=== PATIENT | female | born 1950 | race Caucasian/White ===

== ENCOUNTER 2018-12-13 17:40 | Emergency (ER) | payer MEDICARE ==
[2018-12-13 17:58] VITALS: BP 160/103; PULSE 85; O2SAT 98
--- NOTE | 2018-12-13 18:17 | ERPHSYRPT ---
- History of Present Illness Time Seen by Provider: 12/13/18 17:50 Source: patient Exam Limitations: no limitations Patient Subjective Stated Complaint: blood sugar 468 Triage Nursing Assessment: Pt reports her blood sugar as 468, started on long acting insulin about a month ago and takes a pill in the evening, she feels just "out of sorts", took pill already this evening, needs education on diabetic nutrition Physician History: 68 y/o diabetic white female with h/o htn, who newly began insulin, presents with weakness and nausea for a few days. pt bs at home was 468. pt took her morning dose of insulin and her metformin block captain. no vomiting or diarrhea. pt denies cp and denies soa. pt denies abd pain. Timing/Duration: day(s) (a few days) Severity: mild Associated Symptoms: nausea, weakness, No vomiting, No abdominal pain, No shortness of breath, No cough Allergies/Adverse Reactions: codeine [Codeine] Allergy (Mild, Verified 12/13/18 17:58) Home Medications: Metoprolol Succinate [Toprol Xl] 100 mg PO DAILY 07/11/12 [History] Gabapentin 1,200 mg PO HS 12/13/18 [History] Insulin Degludec [Tresiba Flextouch U-200] 30 unit SQ DAILY 12/13/18 [History] Metformin HCl 500 mg [Glucophage 500 MG] 500 mg PO DAILY 12/13/18 [History ] Hx Tetanus, Diphtheria Vaccination/Date Given: (UNKNOWN) Hx Influenza Vaccination/Date Given: No Hx Pneumococcal Vaccination/Date Given: No - Review of Systems Constitutional: Weakness Eyes: No Symptoms Ears, Nose, & Throat: No Symptoms Respiratory: No Symptoms Cardiac: No Symptoms Abdominal/Gastrointestinal: No Symptoms, Nausea Genitourinary Symptoms: No Symptoms Musculoskeletal: No Symptoms Skin: No Symptoms Neurological: No Symptoms Psychological: No Symptoms Endocrine: No Symptoms Hematologic/Lymphatic: No Symptoms Immunological/Allergic: No Symptoms All Other Systems: Reviewed and Negative - Past Medical History Pertinent Past Medical History: Yes Neurological History: No Pertinent History ENT History: No Pertinent History Cardiac History: Hypertension Respiratory History: No Pertinent History Endocrine Medical History: Diabetes Type II Musculoskeletal History: No Pertinent History GI Medical History: Colorectal Cancer History: No Pertinent History Psycho-Social History: No Pertinent History Female Reproductive Disorders: No Pertinent History Other Medical History: HODGKINS LYMPHOMA - Past Surgical History Past Surgical History: Yes Neuro Surgical History: No Pertinent History Cardiac: No Pertinent History Respiratory: No Pertinent History Gastrointestinal: Appendectomy, Bowel Surgery, Cholecystectomy Musculoskeletal: No Pertinent History Female Surgical History: Hysterectomy Other Surgical History: RIGHT SHOULDER - Social History Smoking Status: Never smoker Exposure to second hand smoke: No Drug Use: none Patient Lives Alone: No - Female History Hx Now: No - Nursing Vital Signs Nursing Vital Signs: Initial Vital Signs Temperature 97.5 F 12/13/18 17:45 Pulse Rate 85 12/13/18 17:45 Blood Pressure 160/103 12/13/18 17:45 O2 Sat by Pulse Oximetry 98 12/13/18 17:45 Pain Scale Pain Intensity 0 - Physical Exam General Appearance: no apparent distress, alert, anxiety Eye Exam: PERRL/EOMI Ears, Nose, Throat Exam: normal ENT inspection, moist mucous membranes Neck Exam: normal inspection, non-tender, supple, full range of motion Respiratory Exam: normal breath sounds, lungs clear, airway intact, No chest tenderness, No respiratory distress, No accessory muscle use, No rhonchi, No wheezing, No stridor Cardiovascular Exam: regular rate/rhythm, normal heart sounds, normal peripheral pulses Gastrointestinal/Abdomen Exam: soft, normal bowel sounds, No tenderness, No guarding, No rebound Pelvic Exam: not done Rectal Exam: not done Back Exam: normal inspection, normal range of motion, No CVA tenderness, No vertebral tenderness Extremity Exam: normal inspection, normal range of motion, pelvis stable Neurologic Exam: alert, oriented x 3, cooperative, melt room 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 pt was not angry and there was no confrontation at time of h and p with nurse or doctor. pt left into a car in her hospital gown. - Departure Time of Disposition: 18:20 Departure Disposition: AMA Clinical Impression: Hyperglycemia, Nausea, Weakness, Hypertension Condition: Stable Critical Care Time: No Referrals: GARIMA MERCADO MD [Primary Care Provider] -
== END 2018-12-13 18:10 | disposition left against medical advice (07) ==
LOC: ED 17:40
DX: E11.65 Type 2 diabetes mellitus with hyperglycemia (principal); Z79.4 Long term (current) use of insulin; R11.0 Nausea; R53.1 Weakness; I10 Essential (primary) hypertension; Z85.038 Personal history of other malignant neoplasm of large intestine; Z85.72 Personal history of non-Hodgkin lymphomas; Z79.899 Other long term (current) drug therapy
CPT/HCPCS: 99283

== ENCOUNTER 2021-06-17 12:04 | Observation (INO) | payer MEDICARE ==
--- NOTE | 2021-06-17 12:07 | ERPHSYRPT ---
- History of Present Illness Time Seen by Provider: 06/17/21 12:07 Source: patient Exam Limitations: clinical condition Physician History: This is a 71-year-old white female who has been having flulike symptoms for the last several days. She has symptoms of weakness, mild cough, arthralgias and myalgias as well as decreased appetite and loss of sense of taste and smell. She has no known exposure to individuals with COVID-19 infection. She was waiting out in the registration area just feeling very weak and then sat herself down onto the floor. She denies chest pain. She has very mild shortness of breath. She has no abdominal pain. She has had decreased appetite. She has had nausea but no vomiting. She has no diarrhea. Patient has not been vaccinated against COVID-19 infection. Timing/Duration: day(s) (Symptoms worsening over the last few days), worse Cough Quality/Degree: mild Possible Cause: no prior episodes Modifying Factors: Improves With: coughing (Mild) Associated Symptoms: cough, muscle aches, shortness of breath (Mild), No chest pain/soreness Allergies/Adverse Reactions: codeine [Codeine] Allergy (Mild, Verified 06/17/21 12:26) Hx Tetanus, Diphtheria Vaccination/Date Given: (UNKNOWN) Hx Influenza Vaccination/Date Given: No Hx Pneumococcal Vaccination/Date Given: No Travel Risk - International Travel Have you traveled outside of the country in past 3 weeks: No - Coronavirus Screening Are you exhibiting any of the following symptoms?: Yes Symptoms: Cough: New Onset, Shortness of Breath, Loss of Taste or Smell, Headaches/Body Aches/Fatigue Close contact with a COVID-19 positive Pt in past 14-21 Days: No - Vaccine Status Have you recieved a Covid-19 vaccination: No - Review of Systems Constitutional: No Symptoms Eyes: No Symptoms Ears, Nose, & Throat: No Symptoms Respiratory: Cough Cardiac: No Symptoms, No Chest Pain Abdominal/Gastrointestinal: Nausea, Appetite Changes Genitourinary Symptoms: No Symptoms Musculoskeletal: Arthralgias, Myalgias Skin: No Symptoms Neurological: No Symptoms Psychological: No Symptoms Endocrine: No Symptoms Hematologic/Lymphatic: No Symptoms Immunological/Allergic: No Symptoms All Other Systems: Reviewed and Negative - Past Medical History Pertinent Past Medical History: Yes Neurological History: No Pertinent History ENT History: No Pertinent History Cardiac History: Hypertension Respiratory History: No Pertinent History Endocrine Medical History: Diabetes Type II Musculoskeletal History: No Pertinent History GI Medical History: Colorectal Cancer History: No Pertinent History Psycho-Social History: No Pertinent History Female Reproductive Disorders: No Pertinent History Other Medical History: HODGKINS LYMPHOMA - Past Surgical History Past Surgical History: Yes Neuro Surgical History: No Pertinent History Cardiac: No Pertinent History Respiratory: No Pertinent History Gastrointestinal: Appendectomy, Bowel Surgery, Cholecystectomy Musculoskeletal: No Pertinent History Female Surgical History: Hysterectomy Other Surgical History: RIGHT SHOULDER - Social History Smoking Status: Never smoker Exposure to second hand smoke: No Drug Use: none Patient Lives Alone: No - Nursing Vital Signs Nursing Vital Signs: Initial Vital Signs Temperature 97.0 F 06/17/21 12:06 Pulse Rate 70 06/17/21 12:06 Respiratory Rate 22 06/17/21 12:06 Blood Pressure 124/84 06/17/21 12:06 O2 Sat by Pulse Oximetry 96 06/17/21 12:06 Pain Scale Pain Intensity 9 - Physical Exam General Appearance: mild distress, alert, anxiety Eye Exam: PERRL/EOMI, eyes nml inspection Ears, Nose, Throat Exam: normal ENT inspection, moist mucous membranes Neck Exam: normal inspection, non-tender, supple, full range of motion Respiratory Exam: normal breath sounds, lungs clear, airway intact, No chest tenderness, No respiratory distress Cardiovascular Exam: regular rate/rhythm, normal heart sounds, normal peripheral pulses Gastrointestinal/Abdomen Exam: soft, normal bowel sounds, No tenderness Pelvic Exam: not done Rectal Exam: not done Back Exam: normal inspection, normal range of motion, No CVA tenderness, No vertebral tenderness Extremity Exam: normal inspection, normal range of motion, pelvis stable Neurologic Exam: alert, oriented x 3, cooperative, high school industrial arts teacher II-XII nml as tested, normal mood/affect, nml cerebellar function, nml station & gait, sensation nml Skin Exam: normal color, warm, dry Lymphatic Exam: No adenopathy SpO2 Interpretation: normal O2 Delivery: Room Air - Course Nursing assessment & vital signs reviewed: Yes EKG Interpreted by Me: RATE (72), Sinus Rhythm, NORMAL AXIS, LAFB, NORMAL INTERVALS, Non-specific ST Changes, Other (No acute ischemic changes on today's EKG. There is no comparison EKG) Ordered Tests: Active Orders 24 hr Category Date Time Status EKG-ER Only STAT Care 06/17/21 12:12 Active IV Insertion STAT Care 06/17/21 12:12 Active Isolation, Initiate & Maintain STAT Care 06/17/21 12:13 Active CHEST 1 VIEW (PORTABLE) Stat Exams 06/17/21 12:14 Completed BLOOD CULTURE Stat Lab 06/17/21 12:50 Received CBC W DIFF Stat Lab 06/17/21 12:45 Completed CMP Stat Lab 06/17/21 12:45 Received Ferritin Stat Lab 06/17/21 12:45 Completed INFLUENZA A+B ELHAM Stat Lab 06/17/21 12:45 Received LDH-LACTATE DEHYDROGENASE Stat Lab 06/17/21 12:45 Received Lactic Acid Stat Lab 06/17/21 12:12 Completed Stanley Screen Stat Lab 06/17/21 12:45 Completed TROPONIN Q3H Lab 06/17/21 12:45 Completed TROPONIN Q3H Lab 06/17/21 15:15 Ordered TROPONIN Q3H Lab 06/17/21 18:15 Ordered TROPONIN Q3H Lab 06/17/21 21:15 Ordered TROPONIN Q3H Lab 06/18/21 00:15 Ordered Transfer Order Routine Transfer 06/17/21 Ordered Medication Summary Generic Name Dose Route Start Last Admin Trade Name Freq PRN Reason Stop Dose Admin Sodium Chloride 1,000 mls @ 100 mls/hr 06/17/21 12:15 06/17/21 13:01 Sodium Chloride 0.9% 1000 Ml IV 07/17/21 12:14 100 mls/hr .Q10H JAM Administration Discontinued Medications Generic Name Dose Route Start Last Admin Trade Name Freq PRN Reason Stop Dose Admin Dexamethasone Sodium Phosphate 8 mg 06/17/21 14:23 Decadron 4 Mg Inj IV 06/17/21 14:24 STAT ONE Enoxaparin Sodium 40 mg 06/17/21 14:23 Enoxaparin Sodium SQ 06/17/21 14:24 STAT ONE Lab/Rad Data: Laboratory Result Diagrams 06/17/21 12:45 06/17/21 12:45 Laboratory Results 06/17/21 06/17/21 06/17/21 Range/Units 13:08 12:45 12:45 WBC (4.0-10.5) K/mm3 RBC (4.1-5.4) M/mm3 Hgb (12.0-16.0) gm/dl Hct (35-47) % MCV (78-100) fl MCH (26-32) pg MCHC (32-36) g/dl RDW (11.5-14.0) % Plt Count (150-450) K/mm3 MPV (7.5-11.0) fl Gran % (36.0-66.0) % Eos # (Auto) (0-0.5) Absolute Lymphs (auto) (1.0-4.6) Absolute Monos (auto) (0.0-1.3) Lymphocytes % (24.0-44.0) % Monocytes % (0.0-12.0) % Eosinophils % (0.00-5.0) % Basophils % (0.0-0.4) % Absolute Granulocytes (1.4-6.9) Basophils # (0-0.4) Sodium (137-145) mmol/L Potassium (3.5-5.1) mmol/L Chloride (98-107) mmol/L Carbon Dioxide (22-30) mmol/L Anion Gap (5-15) MEQ/L BUN (7-17) mg/dL Creatinine (0.52-1.04) mg/dL Estimated GFR ML/MIN Glucose (74-106) mg/dL Lactic Acid (0.4-2.0) Calcium (8.4-10.2) mg/dL Ferritin 438 H (11.1-264) ng/mL Total Bilirubin (0.2-1.3) mg/dL AST (14-36) U/L ALT (0-35) U/L Alkaline Phosphatase (38-126) U/L Lactate Dehydrogenase (120-246) U/L Troponin I (0.000-0.034) ng/mL Serum Total Protein (6.3-8.2) g/dL Albumin (3.5-5.0) g/dL Monoscreen NEGATIVE (Negative) Influenza Type A Ag (NEGATIVE) Influenza Type B Ag (NEGATIVE) SARS-CoV-2 (PCR) POSITIVE A (NEGATIVE) Group A Strep Antibody (NEGATIVE) 06/17/21 06/17/21 06/17/21 Range/Units 12:45 12:45 12:45 WBC (4.0-10.5) K/mm3 RBC (4.1-5.4) M/mm3 Hgb (12.0-16.0) gm/dl Hct (35-47) % MCV (78-100) fl MCH (26-32) pg MCHC (32-36) g/dl RDW (11.5-14.0) % Plt Count (150-450) K/mm3 MPV (7.5-11.0) fl Gran % (36.0-66.0) % Eos # (Auto) (0-0.5) Absolute Lymphs (auto) (1.0-4.6) Absolute Monos (auto) (0.0-1.3) Lymphocytes % (24.0-44.0) % Monocytes % (0.0-12.0) % Eosinophils % (0.00-5.0) % Basophils % (0.0-0.4) % Absolute Granulocytes (1.4-6.9) Basophils # (0-0.4) Sodium (137-145) mmol/L Potassium (3.5-5.1) mmol/L Chloride (98-107) mmol/L Carbon Dioxide (22-30) mmol/L Anion Gap (5-15) MEQ/L BUN (7-17) mg/dL Creatinine (0.52-1.04) mg/dL Estimated GFR ML/MIN Glucose (74-106) mg/dL Lactic Acid (0.4-2.0) Calcium (8.4-10.2) mg/dL Ferritin (11.1-264) ng/mL Total Bilirubin (0.2-1.3) mg/dL AST (14-36) U/L ALT (0-35) U/L Alkaline Phosphatase (38-126) U/L Lactate Dehydrogenase (120-246) U/L Troponin I < 0.012 (0.000-0.034) ng/mL Serum Total Protein (6.3-8.2) g/dL Albumin (3.5-5.0) g/dL Monoscreen (Negative) Influenza Type A Ag NEGATIVE (NEGATIVE) Influenza Type B Ag NEGATIVE (NEGATIVE) SARS-CoV-2 (PCR) (NEGATIVE) Group A Strep Antibody NOT DETECTED (NEGATIVE) 06/17/21 06/17/21 06/17/21 Range/Units 12:45 12:45 12:12 WBC 5.1 (4.0-10.5) K/mm3 RBC 5.28 (4.1-5.4) M/mm3 Hgb 15.3 (12.0-16.0) gm/dl Hct 45.2 (35-47) % MCV 85.6 (78-100) fl MCH 29.0 (26-32) pg MCHC 33.8 (32-36) g/dl RDW 13.8 (11.5-14.0) % Plt Count 127 L (150-450) K/mm3 MPV 11.2 H (7.5-11.0) fl Gran % 69.0 H (36.0-66.0) % Eos # (Auto) 0.03 (0-0.5) Absolute Lymphs (auto) 1.12 (1.0-4.6) Absolute Monos (auto) 0.43 (0.0-1.3) Lymphocytes % 21.8 L (24.0-44.0) % Monocytes % 8.4 (0.0-12.0) % Eosinophils % 0.6 (0.00-5.0) % Basophils % 0.2 (0.0-0.4) % Absolute Granulocytes 3.54 (1.4-6.9) Basophils # 0.01 (0-0.4) Sodium 129 L (137-145) mmol/L Potassium 4.5 (3.5-5.1) mmol/L Chloride 93 L (98-107) mmol/L Carbon Dioxide 25 (22-30) mmol/L Anion Gap 15.9 H (5-15) MEQ/L BUN 13 (7-17) mg/dL Creatinine 0.71 (0.52-1.04) mg/dL Estimated GFR > 60.0 ML/MIN Glucose 321 H (74-106) mg/dL Lactic Acid 1.2 (0.4-2.0) Calcium 9.2 (8.4-10.2) mg/dL Ferritin (11.1-264) ng/mL Total Bilirubin 1.40 H (0.2-1.3) mg/dL AST 26 (14-36) U/L ALT 24 (0-35) U/L Alkaline Phosphatase 98 (38-126) U/L Lactate Dehydrogenase 156 (120-246) U/L Troponin I (0.000-0.034) ng/mL Serum Total Protein 6.9 (6.3-8.2) g/dL Albumin 4.1 (3.5-5.0) g/dL Monoscreen (Negative) Influenza Type A Ag (NEGATIVE) Influenza Type B Ag (NEGATIVE) SARS-CoV-2 (PCR) (NEGATIVE) Group A Strep Antibody (NEGATIVE) - Progress Progress: improved, re-examined Air Movement: good Progress Note: 06/17/21 14:19 Chest x-ray shows no acute cardiopulmonary process. 06/17/21 14:20 Medical decision making: This patient is very weak. She has mild shortness of breath. She has no chest pain. She is only a mild cough. However her weakness is significant as is her myalgias and arthralgias. She has had a decreased appetite. Her COVID-19 test has returned positive. Patient needs to be monitored in our Covid unit. I spoke with Dr. Orozco. I reviewed the patient history, clinical findings, laboratory results, EKG findings and x-ray reports with him. He agrees with placement into observation. Blood Culture(s) Obtained: Yes Antibiotics given: No Discussed with Dr.: Other (Ernesto) Counseled pt/family regarding: lab results, diagnosis, rad results - Departure Departure Disposition: Observation Clinical Impression: COVID-19 virus infection, Weakness Condition: Stable Critical Care Time: Yes Critical Care Time(excluding separately billable procedures): Critical 30-74 mins Referrals: GARIMA MERCADO MD [Primary Care Provider] -
[2021-06-17] MEDS ORDERED: Sodium Chloride 0.9% 1000 ML 1,000 ML IV SCH ×2 (12:15→16:17)
--- NOTE | 2021-06-17 12:36 | XRAY ---
Indication: Cough. Comparison: None Portable chest clear. Heart not enlarged. Bony thorax intact with mild osteopenia and degenerative changes. Impression: Nonacute chest with chronic bony findings.
[2021-06-17 13:10] LABS: Absolute Neutrophil Ct (ANC) 3.54 (1.4-6.9); BASOPHIL % 0.2 % (0.0-0.4); Basophil (Absolute #) 0.01 (0-0.4); Eosinophil % 0.6 % (0.00-5.0); Eosinophil (Absolute #) 0.03 (0-0.5); Hematocrit 45.2 % (35-47); Hemoglobin 15.3 gm/dl (12.0-16.0); Lymphocyte (Absolute #) 1.12 (1.0-4.6); Lymphocytes % 21.8 % (24.0-44.0); Mean Cell Volume 85.6 fl (78-100); Mean Corpuscular Hgb Concent. 33.8 g/dl (32-36); Mean Platelet Volume 11.2 fl (7.5-11.0); Monocyte (Absolute #) 0.43 (0.0-1.3); Monocytes % 8.4 % (0.0-12.0); Platelet Count 127 K/mm3 (150-450); Red Blood Count 5.28 M/mm3 (4.1-5.4); Red Cell Distribution Width 13.8 % (11.5-14.0); White Blood Count 5.1 K/mm3 (4.0-10.5)
[2021-06-17 14:18] LABS: ALBUMIN 4.1 g/dL (3.5-5.0); ALKALINE PHOSPHATASE 98 U/L (38-126); ANION GAP 15.9 MEQ/L (5-15); BLOOD UREA NITROGEN 13 mg/dL (7-17); CHLORIDE 93 mmol/L (98-107); Calcium 9.2 mg/dL (8.4-10.2); Carbon Dioxide 25 mmol/L (22-30); Creatinine 1 0.71 mg/dL (0.52-1.04); EST GLOMERULAR FILTRATION RATE > 60.0 ML/MIN; Glucose 321 mg/dL (74-106); LDH-LACTATE DEHYDROGENASE 156 U/L (120-246); Potassium 4.5 mmol/L (3.5-5.1); SGOT/AST 26 U/L (14-36); SGPT/ALT 24 U/L (0-35); SODIUM 129 mmol/L (137-145); Total Protein 6.9 g/dL (6.3-8.2)
[2021-06-17 14:20] LABS: INFLUENZA A NEGATIVE (NEGATIVE); INFLUENZA B NEGATIVE (NEGATIVE)
[2021-06-17] MEDS ORDERED: ENOXAPARIN SODIUM SQ ONE (14:23)
[2021-06-17] MEDS ORDERED: Decadron 4 MG INJ IV ONE (14:23)
[2021-06-17] MEDS ORDERED: TYLENOL 325 MG PO PRN (16:17)
[2021-06-17] MEDS ORDERED: Zofran 4 MG/2 ML VIAL IV PRN (16:17)
[2021-06-17] MEDS ORDERED: REMDESIVIR 200 MG in Sodium Chloride 0.9% 250 ML 250 ML IV ONE (16:17)
[2021-06-17 16:23] VITALS: BP 137/80
[2021-06-17] MEDS ORDERED: TYLENOL EXTRA STRENGTH 500 MG PO PRN (17:16)
[2021-06-17] MEDS ORDERED: Ativan 1 MG PO PRN (17:16)
[2021-06-17] MEDS: HUMULIN R SQ PRN ×2 (17:37→20:22)
[2021-06-17] MEDS ORDERED: Decadron 4 MG INJ IV SCH (17:45)
[2021-06-17] MEDS ORDERED: NEURONTIN 300 MG ONE (20:20)
[2021-06-17] MEDS ORDERED: Lopressor 50 MG ONE (20:20)
[2021-06-17 20:28] VITALS: PULSE 80; O2SAT 92
[2021-06-17] MEDS ORDERED: NEURONTIN 300 MG PO SCH (22:00)
[2021-06-17] MEDS ORDERED: Lopressor 50 MG PO SCH (22:00)
[2021-06-18] MEDS ORDERED: ENOXAPARIN SODIUM SQ SCH (10:00)
[2021-06-18] MEDS ORDERED: REMDESIVIR 100 MG in Sodium Chloride 0.9% 100 ML BAG 100 ML IV SCH (14:28)
== END 2021-06-17 20:50 | disposition left against medical advice (07) ==
LOC: ED 12:04 → MED SURG 16:00
PROVIDERS: ADMIT Family Medicine; ATTEND Family Medicine
DX: U07.1 COVID-19 (principal); R53.1 Weakness; R06.02 Shortness of breath; R51.9 Headache, unspecified; E11.9 Type 2 diabetes mellitus without complications; Z20.822 Contact with and (suspected) exposure to COVID-19; R11.0 Nausea; I10 Essential (primary) hypertension; Z79.899 Other long term (current) drug therapy
CPT/HCPCS: 36000; 36415; 71045; 80053; 82728; 82947; 83605; 83615; 84484; 85025; 86308; 87040; 87400; 87651; 93005; 93268; 94762; 96360; 96361; 99284; G0378; U0003; J1100; J1815; A9270-GY

== ENCOUNTER 2021-10-18 17:31 | Emergency (ER) | payer MEDICARE ==
--- NOTE | 2021-10-18 18:14 | ERPHSYRPT ---
- History of Present Illness Time Seen by Provider: 10/18/21 17:38 Source: patient Exam Limitations: no limitations Patient Subjective Stated Complaint: "My head hurt real bad." Triage Nursing Assessment: The patient reported an acute onset of headache that lasted roughly 15 minutes. She reported this happened after [place] the [place] and she had not taken her nightly BP meds yet. She denied any visual/auditory disturbances, dizziness, or weakness. She denied difficulty speaking, swallowing, or walking. Pupils 4mm bilateral with brisk reaction. Oral mucosa pink/dry. Neck supple without lympadenopathy. Symmetrical chest e xpansion. heart tones S1/S2. Lungs vesicular. Peripheral pulses +2 bilateral Physician History: 71-year-old female with a history of hypertension, diabetes mellitus presented in the ER via EMS with chief complaint of sudden onset headache and elevated blood pressure. Patient reports [place] and came back home started to feel some headache almost an hour prior to arrival, constant, moderate to severe intensity, sharp nature, all over with some blinking of eyes without any new visual disturbance but what she has at her baseline. She checked her blood pressure and it was in 200s, took her nighttime medication and her symptoms started to improve prior to arrival. Currently she has a minimal to no headache at this point. Denies any numbness tingling or focal weakness. Denies any chest pain palpitations or shortness of breath. Patient does not want any lab work/EKG/imaging which she is refusing and wants to leave. Timing/Duration: today, constant, gradual onset, improved Quality: sharpness Head Pain Location: global Severity of Pain-Max: severe Severity of Pain-Current: none Recent Head Trauma: no recent headache/trauma Associated Symptoms: denies symptoms Previous symptoms: no prior history Allergies/Adverse Reactions: codeine [Codeine] Allergy (Mild, Verified 10/18/21 17:34) Home Medications: Gabapentin 600 mg PO HS 06/17/21 [History] Insulin Degludec [Tresiba Flextouch U-200] 60 unit SQ HS 06/17/21 [History] Metoprolol Tartrate [Lopressor] 100 mg PO HS 06/17/21 [History] lisinopriL [Lisinopril] 40 mg PO DAILY 06/17/21 [History] Hx Tetanus, Diphtheria Vaccination/Date Given: No (UNKNOWN) Hx Influenza Vaccination/Date Given: No Hx Pneumococcal Vaccination/Date Given: No Travel Risk - International Travel Have you traveled outside of the country in past 3 weeks: No - Coronavirus Screening Are you exhibiting any of the following symptoms?: No Close contact with a COVID-19 positive Pt in past 14-21 Days: No - Vaccine Status Have you recieved a Covid-19 vaccination: No - Review of Systems Constitutional: No Symptoms Eyes: No Symptoms Ears, Nose, & Throat: No Symptoms Respiratory: No Symptoms Cardiac: No Symptoms Abdominal/Gastrointestinal: No Symptoms Genitourinary Symptoms: No Symptoms Musculoskeletal: Arthralgias Skin: No Symptoms Neurological: Headache Psychological: Anxiety Endocrine: No Symptoms Hematologic/Lymphatic: No Symptoms Immunological/Allergic: No Symptoms - Past Medical History Pertinent Past Medical History: Yes Neurological History: No Pertinent History ENT History: No Pertinent History Cardiac History: Hypertension Respiratory History: No Pertinent History Endocrine Medical History: Diabetes Type II Musculoskeletal History: No Pertinent History GI Medical History: Colorectal Cancer History: No Pertinent History Psycho-Social History: No Pertinent History Female Reproductive Disorders: No Pertinent History Other Medical History: HODGKINS LYMPHOMA - Past Surgical History Past Surgical History: Yes Neuro Surgical History: No Pertinent History Cardiac: No Pertinent History Respiratory: No Pertinent History Gastrointestinal: Appendectomy, Bowel Surgery, Cholecystectomy Musculoskeletal: No Pertinent History Female Surgical History: Hysterectomy Other Surgical History: RIGHT SHOULDER - Social History Smoking Status: Never smoker Exposure to second hand smoke: No Drug Use: none Patient Lives Alone: No - Female History Hx Now: No - Nursing Vital Signs Nursing Vital Signs: Initial Vital Signs Pulse Rate 112 H 10/18/21 17:32 Respiratory Rate 18 10/18/21 17:32 Blood Pressure 165/108 10/18/21 17:32 O2 Sat by Pulse Oximetry 95 10/18/21 17:32 Pain Scale Pain Intensity 0 - Physical Exam General Appearance: no apparent distress, alert Eye Exam: PERRL/EOMI, eyes nml inspection Ears, Nose, Throat Exam: normal ENT inspection, TMs normal, pharynx normal, moist mucous membranes Neck Exam: normal inspection, non-tender, supple, full range of motion Respiratory Exam: normal breath sounds, lungs clear Cardiovascular Exam: normal heart sounds, tachycardia Gastrointestinal/Abdominal Exam: soft, normal bowel sounds Back Exam: normal inspection Extremity Exam: normal inspection, normal range of motion Mental Status Exam: alert, oriented x 3, cooperative teacher vocational training Exam: normal hearing, normal speech, PERRL, No abnormal eye position Coordination/Gait Exam: normal finger to nose, negative Romberg's sign Motor/Sensory Exam: no motor deficit, no sensory deficit, no pronator drift, negative Babinski's sign DTR Exam: bicep (R): 2+, bicep (L): 2+, knee (R): 2+, knee (L): 2+ Skin Exam: normal color SpO2 Interpretation: normal SpO2: 95 O2 Delivery: Room Air - Course EKG Interpreted by Me: RATE (107), Sinus Tach, Left Moon Deviation, LAFB, NORMAL INTERVALS, Other (LVH, PVC) - Progress Progress: unchanged Air Movement: good Progress Note: 10/18/21 18:12 She is offered work-up for headache and evaluation of cause of uncontrolled hypertension but she refused to have anything done and wants to leave. Discussed with patient in detail about risk of leaving without full work-up which include but not limited to delaying the diagnosis, worsening of condition with permanent disability including with stroke/KS and she wants to leave. Patient states "I am fine and I need to leave right now". She is not confused or altered at all. She signed AMA papers, is advised to follow-up outpatient with her primary care. Discussed signs symptoms of worsening needing return to ER which she seems understanding 10/18/21 18:14 Blood Culture(s) Obtained: No Antibiotics given: No Counseled pt/family regarding: diagnosis, need for follow-up - Departure Departure Disposition: Home Clinical Impression: Uncontrolled hypertension, Headache Condition: Stable Critical Care Time: No Referrals: GARIMA MERCADO MD [Primary Care Provider] - Follow Up with PCP/3 days Instructions: Headache, Adult, Malignant Hypertension (DC) Additional Instructions: Take Tylenol as needed for headache. Monitor your blood pressure regularly, sandra bronson log and follow-up with primary care. Return to ER if blood pressure is elevated, having headache, visual disturbance, chest pain palpitations/shortness of breath or numbness tingling weakness etc.
[2021-10-18 18:22] VITALS: BP 156/100; PULSE 104; O2SAT 96
== END 2021-10-18 18:22 | disposition left against medical advice (07) ==
LOC: ED 17:31
DX: R51.9 Headache, unspecified (principal); I10 Essential (primary) hypertension; E11.9 Type 2 diabetes mellitus without complications; Z79.4 Long term (current) use of insulin
CPT/HCPCS: 99283

== ENCOUNTER 2021-10-19 04:19 | Emergency (ER) | payer MEDICARE ==
[2021-10-19] MEDS ORDERED: Sodium Chloride 0.9% 1000 ML 1,000 ML IV SCH (04:30)
--- NOTE | 2021-10-19 04:38 | ERPHSYRPT ---
- History of Present Illness Source: patient, EMS Exam Limitations: clinical condition Timing/Duration: today Severity: severe Character of Deficits: new weakness, unable to speak Deficits: cannot stand, cannot walk, unable to sit Baseline/Normal Cognition: alert oriented x 3 Current Cognition: poor alertness Baseline Gait: walks w/o assistance Associated Symptoms: confusion Hx Tetanus, Diphtheria Vaccination/Date Given: No (UNKNOWN) Hx Influenza Vaccination/Date Given: No Hx Pneumococcal Vaccination/Date Given: No <ALPESH SANTIZO - Last Filed: 10/19/21 06:54> <ANTONIO GARCIA - Last Filed: 10/19/21 08:10> - History of Present Illness Time Seen by Provider: 10/19/21 04:33 Physician History: pt is 71 yr old female reported as alert seen in ER earlier today with elevated BP but signed out AMA, then reported by family and EMS to have had an altered mental status then became less responsive and was brought into ER here. Ho Hx of trauma, but a question of potential seizure was mentioned in radio call to scene although not confirmed. No focal deficits on exam but not following any commands although moving all extremities with purposeful attention to stimuli. no facial droop. (ALPESH SANTIZO) Allergies/Adverse Reactions: codeine [Codeine] Allergy (Mild, Verified 10/18/21 17:34) Home Medications: Gabapentin 600 mg PO HS 06/17/21 [History] Insulin Degludec [Tresiba Flextouch U-200] 60 unit SQ HS 06/17/21 [History] Metoprolol Tartrate [Lopressor] 100 mg PO HS 06/17/21 [History] lisinopriL [Lisinopril] 40 mg PO DAILY 06/17/21 [History] Travel Risk - Vaccine Status Have you recieved a Covid-19 vaccination: No <ALPESH SANTIZO - Last Filed: 10/19/21 06:54> - Review of Systems Constitutional: Weakness, No Fever, No Chills Eyes: No Symptoms Ears, Nose, & Throat: No Symptoms Respiratory: No Cough, No Dyspnea Cardiac: No Chest Pain, No Edema, No Syncope Abdominal/Gastrointestinal: No Abdominal Pain, No Nausea, No Vomiting, No Diarrhea Genitourinary Symptoms: No Dysuria Musculoskeletal: No Back Pain, No Neck Pain Skin: No Symptoms, No Rash Neurological: Other (altered mental status), No Dizziness, No Focal Weakness, No Sensory Changes Psychological: No Symptoms, Hallucinations (reported by family earlier) Endocrine: No Symptoms Hematologic/Lymphatic: No Symptoms Immunological/Allergic: No Symptoms All Other Systems: Reviewed and Negative <ALPESH SANTIZO - Last Filed: 10/19/21 06:54> - Past Medical History Pertinent Past Medical History: Yes Neurological History: No Pertinent History ENT History: No Pertinent History Cardiac History: Hypertension Respiratory History: No Pertinent History Endocrine Medical History: Diabetes Type II Musculoskeletal History: No Pertinent History GI Medical History: Colorectal Cancer History: No Pertinent History Psycho-Social History: No Pertinent History Female Reproductive Disorders: No Pertinent History Other Medical History: HODGKINS LYMPHOMA - Past Surgical History Past Surgical History: Yes Neuro Surgical History: No Pertinent History Cardiac: No Pertinent History Respiratory: No Pertinent History Gastrointestinal: Appendectomy, Bowel Surgery, Cholecystectomy Musculoskeletal: No Pertinent History Female Surgical History: Hysterectomy Other Surgical History: RIGHT SHOULDER - Social History Smoking Status: Never smoker Exposure to second hand smoke: No Drug Use: none Patient Lives Alone: No <ALPESH SANTIZO - Last Filed: 10/19/21 06:54> - [place] Coma Scale Best Eye Response ([place]): (2) open to pain Best Verbal Response ([place]): (2) incomprehsible sounds Best Motor Response ([place]): (5) localizes to pain [place] Total: 9 - Physical Exam General Appearance: moderate distress Eye Exam: bilateral eye: PERRL, EOMI Ears, Nose, Throat Exam: normal ENT inspection Neck Exam: normal inspection, non-tender, supple, full range of motion, No meningismus, No carotid bruit Respiratory: normal breath sounds, lungs clear, airway intact Cardiovascular: normal heart sounds Gastrointestinal: soft, No tenderness, No rebound Pelvic Exam: deferred Rectal Exam: deferred Back Exam: normal inspection Extremity Exam: normal inspection Peripheral Pulses: carotid (R): 2+, carotid (L): 2+, femoral (R): 2+, femoral (L): 2+, dorsalis-pedis (R): 2+, dorsalis-pedis (L): 2+ Mental Status: uncooperative, disoriented to person, disoriented to place, 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 Exam: PERRL, abnormal speech, No facial droop Motor/Sensory: no motor deficit, no sensory deficit DTR: bicep (R): 2+, bicep (L): 2+, tricep (R): 2+, tricep (L): 2+, knee (R): 2+, knee (L): 2+, ankle (R): 2+, ankle (L): 2+ Skin Exam: normal color, warm, dry SpO2 Interpretation: borderline oxygenation SpO2: 91 O2 Delivery: Room Air <ALPESH SANTIZO - Last Filed: 10/19/21 06:54> - Nursing Vital Signs Nursing Vital Signs: Initial Vital Signs Pulse Rate 87 10/19/21 04:20 Respiratory Rate 16 10/19/21 04:20 Blood Pressure 139/91 10/19/21 04:20 O2 Sat by Pulse Oximetry 96 10/19/21 04:20 Pain Scale Pain Intensity 0 - Course Nursing assessment & vital signs reviewed: Yes EKG Interpreted by Me: Sinus Rhythm, Left [place] Deviation, Non-specific ST Changes, Other (interventricular conduction delay) - Radiology Exams Chest X-ray Interpretation: Reviewed by me, Other (possible perihilar interstitial infiltrates) - CT Exams Head CT Interpretation: No/Intracranial Hemorrhag <ALPESH SANTIZO - Last Filed: 10/19/21 06:54> Ordered Tests: Active Orders 24 hr Category Date Time Status Ict Development Manager STAT Care 10/19/21 04:23 Active Clean Catch Urine Specimen STAT Care 10/19/21 04:21 Active EKG-ER Only STAT Care 10/19/21 04:21 Active IV Insertion STAT Care 10/19/21 04:21 Active NPO (ED) STAT Care 10/19/21 04:21 Active Oxygen-ED Only Nasal Cannula 2 lpm Care 10/19/21 04:52 Active Pulse Oximetry (ED) STAT Care 10/19/21 04:21 Active Tele-Health Consult ROUTINE Cons 10/19/21 04:55 Active CHEST 1 VIEW (PORTABLE) Stat Exams 10/19/21 04:22 Taken HEAD WITHOUT CONTRAST [CT] Stat Exams 10/19/21 04:22 Taken CBC W DIFF Stat Lab 10/19/21 04:50 Completed CMP Stat Lab 10/19/21 04:50 Completed ETHYL ALCOHOL Stat Lab 10/19/21 04:50 Completed Lactic Acid Stat Lab 10/19/21 04:48 Completed Lactic Acid Stat Lab 10/19/21 06:54 Completed NT PRO BNP Routine Lab 10/19/21 04:50 Completed T4 (Thyroxine) Stat Lab 10/19/21 04:50 Completed TROPONIN Q3H Lab 10/19/21 04:50 Completed TROPONIN Q3H Lab 10/19/21 07:27 Received TROPONIN Q3H Lab 10/19/21 10:30 Ordered TROPONIN Q3H Lab 10/19/21 13:30 Ordered TROPONIN Q3H Lab 10/19/21 16:30 Ordered TSH [TSH, 3RD Generation] Stat Lab 10/19/21 04:50 Completed UA W/RFX UR CULTURE Stat Lab 10/19/21 07:50 Ordered Urine Triage Profile Stat Lab 10/19/21 07:50 Ordered Medication Summary Generic Name Dose Route Start Last Admin Trade Name Freq PRN Reason Stop Dose Admin Sodium Chloride 1,000 mls @ 100 mls/hr 10/19/21 04:30 10/19/21 05:03 Sodium Chloride 0.9% 1000 Ml IV 11/18/21 04:29 100 mls/hr .Q10H JAM Administration Discontinued Medications Generic Name Dose Route Start Last Admin Trade Name Freq PRN Reason Stop Dose Admin Levetiracetam 1,000 mg/ 110 mls @ 220 mls/hr 10/19/21 07:36 10/19/21 08:03 Dextrose IV 10/19/21 08:05 220 mls/hr STAT ONE Administration Lab/Rad Data: Laboratory Result Diagrams 10/19/21 04:50 10/19/21 04:50 Laboratory Results 10/19/21 10/19/21 10/19/21 Range/Units 06:54 04:50 04:50 WBC (4.0-10.5) K/mm3 RBC (4.1-5.4) M/mm3 Hgb (12.0-16.0) gm/dl Hct (35-47) % MCV (78-100) fl MCH (26-32) pg MCHC (32-36) g/dl RDW (11.5-14.0) % Plt Count (150-450) K/mm3 MPV (7.5-11.0) fl Gran % (36.0-66.0) % Eos # (Auto) (0-0.5) Absolute Lymphs (auto) (1.0-4.6) Absolute Monos (auto) (0.0-1.3) Lymphocytes % (24.0-44.0) % Monocytes % (0.0-12.0) % Eosinophils % (0.00-5.0) % Basophils % (0.0-0.4) % Absolute Granulocytes (1.4-6.9) Basophils # (0-0.4) Sodium 134 L (137-145) mmol/L Potassium 4.7 (3.5-5.1) mmol/L Chloride 101 (98-107) mmol/L Carbon Dioxide 20 L (22-30) mmol/L Anion Gap 17.9 H (5-15) MEQ/L BUN 25 H (7-17) mg/dL Creatinine 0.91 (0.52-1.04) mg/dL Estimated GFR > 60.0 ML/MIN Glucose 255 H (74-106) mg/dL Lactic Acid 1.4 (0.4-2.0) Calcium 10.0 (8.4-10.2) mg/dL Total Bilirubin 1.60 H (0.2-1.3) mg/dL AST 40 H (14-36) U/L ALT 26 (0-35) U/L Alkaline Phosphatase 96 (38-126) U/L Troponin I (0.000-0.034) ng/mL NT-Pro-B Natriuret Pep (0-900) pg/mL Serum Total Protein 7.4 (6.3-8.2) g/dL Albumin 4.5 (3.5-5.0) g/dL Thyroxine (T4) 9.01 (5.53-10.96) ug/dL TSH 3rd Generation 3.400 (0.47-4.68) mIU/L Ethyl Alcohol < 10 (0-10) mg/dL 10/19/21 10/19/21 10/19/21 Range/Units 04:50 04:50 04:48 WBC 9.7 (4.0-10.5) K/mm3 RBC 5.42 H (4.1-5.4) M/mm3 Hgb 15.7 (12.0-16.0) gm/dl Hct 46.7 (35-47) % MCV 86.2 (78-100) fl MCH 29.0 (26-32) pg MCHC 33.6 (32-36) g/dl RDW 13.5 (11.5-14.0) % Plt Count 234 (150-450) K/mm3 MPV 11.0 (7.5-11.0) fl Gran % 62.6 (36.0-66.0) % Eos # (Auto) 0.19 (0-0.5) Absolute Lymphs (auto) 2.60 (1.0-4.6) Absolute Monos (auto) 0.78 (0.0-1.3) Lymphocytes % 26.9 (24.0-44.0) % Monocytes % 8.1 (0.0-12.0) % Eosinophils % 2.0 (0.00-5.0) % Basophils % 0.4 (0.0-0.4) % Absolute Granulocytes 6.07 (1.4-6.9) Basophils # 0.04 (0-0.4) Sodium (137-145) mmol/L Potassium (3.5-5.1) mmol/L Chloride (98-107) mmol/L Carbon Dioxide (22-30) mmol/L Anion Gap (5-15) MEQ/L BUN (7-17) mg/dL Creatinine (0.52-1.04) mg/dL Estimated GFR ML/MIN Glucose (74-106) mg/dL Lactic Acid 6.4 H (0.4-2.0) Calcium (8.4-10.2) mg/dL Total Bilirubin (0.2-1.3) mg/dL AST (14-36) U/L ALT (0-35) U/L Alkaline Phosphatase (38-126) U/L Troponin I < 0.012 (0.000-0.034) ng/mL NT-Pro-B Natriuret Pep 107 (0-900) pg/mL Serum Total Protein (6.3-8.2) g/dL Albumin (3.5-5.0) g/dL Thyroxine (T4) (5.53-10.96) ug/dL TSH 3rd Generation (0.47-4.68) mIU/L Ethyl Alcohol (0-10) mg/dL - Progress Progress: improved, re-examined Counseled pt/family regarding: lab results, diagnosis, need for follow-up, rad results <ALPESH SANTIZO - Last Filed: 10/19/21 06:54> - Progress Discussed with Dr.: Other <ANTONIO GARCIA - Last Filed: 10/19/21 08:10> - Progress Progress Note: 10/19/21 05:00 GCS improved to 15 under obs in ER, now following commands and oriented. 10/19/21 06:[address] Garcia at change of shift after discussion of pending labs and findings for final disposition and furhter diagnosis /Tx. (ALPESH SANTIZO) 10/19/21 08:08 Patient is checked out to me at shift change from Dr. Layton with pending transfer. Patient presented with altered mental status but on my evaluation she is back to her baseline. CT head is negative for any acute findings. She had elevated lactate but no obvious focus of infection. Repeat lactate is improved from 6.4-1.4. SOC neurology evaluation is obtained, neurologist discussed with Dr. Layton who told me that he wanted patient to have a loading dose of Keppra, MRI, ammonia level checked and admission. We do not have MRI services here and no neurology in-house. Discussed with Dr. Carbajal [facility], reviewed history, work-up and patient is accepted for transfer (ANTONIO GARCIA) - Departure Critical Care Time: Yes Critical Care Time(excluding separately billable procedures): Critical 30-74 mins (30 minutes critical care with initial AMS requiring CVA protocol initially, borderline O2) <ALPESH SANTIZO - Last Filed: 10/19/21 06:54> - Departure Departure Disposition: Transfer <ANTONIO GARCIA - Last Filed: 10/19/21 08:10> - Departure Clinical Impression: AMS (altered mental status) Condition: Good Referrals: GARIMA MERCADO MD [Primary Care Provider] - Follow up/PCP as directed
[2021-10-19 04:54] LABS: Absolute Neutrophil Ct (ANC) 6.07 (1.4-6.9); BASOPHIL % 0.4 % (0.0-0.4); Basophil (Absolute #) 0.04 (0-0.4); Eosinophil (Absolute #) 0.19 (0-0.5); Hematocrit 46.7 % (35-47); Hemoglobin 15.7 gm/dl (12.0-16.0); Lymphocytes % 26.9 % (24.0-44.0); Mean Cell Volume 86.2 fl (78-100); Mean Corpuscular Hgb Concent. 33.6 g/dl (32-36); Monocyte (Absolute #) 0.78 (0.0-1.3); Monocytes % 8.1 % (0.0-12.0); Neutrophil % 62.6 % (36.0-66.0); Platelet Count 234 K/mm3 (150-450); Red Blood Count 5.42 M/mm3 (4.1-5.4); Red Cell Distribution Width 13.5 % (11.5-14.0); White Blood Count 9.7 K/mm3 (4.0-10.5)
[2021-10-19] MEDS ORDERED: Sodium Chloride 0.9% 1000 ML 1,000 ML ONE (05:02)
[2021-10-19 05:12] LABS: ALBUMIN 4.5 g/dL (3.5-5.0); ALKALINE PHOSPHATASE 96 U/L (38-126); ANION GAP 17.9 MEQ/L (5-15); BLOOD UREA NITROGEN 25 mg/dL (7-17); CHLORIDE 101 mmol/L (98-107); Carbon Dioxide 20 mmol/L (22-30); Creatinine 1 0.91 mg/dL (0.52-1.04); EST GLOMERULAR FILTRATION RATE > 60.0 ML/MIN; ETHYL ALCOHOL < 10 mg/dL (0-10); Glucose 255 mg/dL (74-106); Potassium 4.7 mmol/L (3.5-5.1); SGOT/AST 40 U/L (14-36); SGPT/ALT 26 U/L (0-35); SODIUM 134 mmol/L (137-145); Total Protein 7.4 g/dL (6.3-8.2)
[2021-10-19 05:24] LABS: NT PRO BNP 107 pg/mL (0-900); TROPONIN < 0.012 ng/mL (0.000-0.034)
[2021-10-19 05:42] LABS: T4 (Thyroxine) 9.01 ug/dL (5.53-10.96); TSH, 3RD Generation 3.4 mIU/L (0.47-4.68)
[2021-10-19] MEDS ORDERED: Keppra 500 MG/5 ML*** 1,000 MG in D5w 100ML Mini Bag 100 ML 100 ML IV ONE (07:36)
[2021-10-19 07:38] VITALS: O2SAT 98
[2021-10-19 08:33] VITALS: BP 148/97; PULSE 64
--- NOTE | 2021-10-19 08:36 | XRAY ---
Indication: Altered mental status. Stroke. Comparison: June 17, 2021. Portable chest less inflated and clear. Heart not enlarged again with left hilar calcified nodes. Bony thorax intact again with mild osteopenia and degenerative changes. Impression: Nonacute chest with chronic features.
--- NOTE | 2021-10-19 08:36 | XRAY ---
Indication: Headache and high blood pressure. Stroke. Multiple contiguous axial images obtained through the head without contrast. Comparison: None. Age-appropriate global atrophy and mild periventricular degenerative micro-ischemia bilaterally. No acute intracranial hemorrhage, abnormal extra-axial fluid collection, or mass effect. Fourth ventricle is midline without hydrocephalus. Bony calvarium intact. Visualized paranasal sinuses and mastoid air cells are clear. Impression: Nonacute senile brain. Comment: Preliminary interpretation made by [facility]. No critical discrepancy.
[2021-10-19 08:57] LABS: Barbiturate,Urine NEGATIVE (NEGATIVE); Benzodiazepine,Urine NEGATIVE (NEGATIVE); Cocaine,Urine NEGATIVE (NEGATIVE); Methadone,Urine NEGATIVE (NEGATIVE); Opiate,Urine NEGATIVE (NEGATIVE); PCP,Urine NEGATIVE (NEGATIVE); THC,Urine NEGATIVE (NEGATIVE)
[2021-10-19 09:04] LABS: Appearance CLOUDY (CLEAR); Bacteria FEW /HPF (NEGATIVE); Bilirubin NEGATIVE (NEGATIVE); Blood NEGATIVE Ery/ul (0-5); Epithelial Cells FEW /HPF (FEW); Glucose >=500 mg/dL (NEGATIVE); Ketones TRACE (NEGATIVE); Leukocyte Esterase NEGATIVE (NEGATIVE); Mucus SLIGHT /HPF (NEGATIVE); Nitrite NEGATIVE (NEGATIVE); Protein,Urine Dip 100 (Negative); Specific Gravity 1.024 (1.005-1.025); Urobilinogen NEGATIVE mg/dL (0-1)
[2021-10-19 09:24] LABS: Amphetamine,Urine POSITIVE (NEGATIVE)
== END 2021-10-19 08:52 | disposition short-term general hospital (02) ==
LOC: ED 04:19
DX: R41.82 Altered mental status, unspecified (principal); I10 Essential (primary) hypertension; E11.9 Type 2 diabetes mellitus without complications; Z79.4 Long term (current) use of insulin; Z79.899 Other long term (current) drug therapy
CPT/HCPCS: 36000; 36415; 70450; 71045; 80053; 80307; 81001; 82140; 83605; 83880; 84436; 84443; 84484; 85025; 87086; 93005; 93041; 94760; 99285; 99291; G0480; J1953

== ENCOUNTER 2024-05-11 15:50 | Emergency (ER) | payer MEDICARE ==
--- NOTE | 2024-05-11 15:53 | ERPHSYRPT ---
- History of Present Illness Time Seen by Provider: 05/11/24 15:53 Source: patient, family Exam Limitations: no limitations Physician History: This is an overweight, right-handed 74-year-old white female patient who has a history of hypertension and presents with a dog bite to her right forearm. The patient's primary care provider is Dr. Mercado. Patient was bit on the right forearm prior to arrival. Patient was having significant pain. While she was at check-in here at the hospital, she fell and hit her head. Patient does not recall the events. Patient does recall having significant pain and then also seeing the blood in underlying tissue that may have caused this syncopal episode. Patient has a history of hypertension and insulin-dependent diabetes. Patient does not have shortness of breath or chest pain. Timing/Duration: today Quality: painful Severity: mild Location: extremities Possible Causes: other (Moderate) Allergies/Adverse Reactions: codeine [Codeine] Allergy (Mild, Verified 05/11/24 15:52) Home Medications: Gabapentin 600 mg PO HS 06/17/21 [History] Insulin Degludec [Tresiba Flextouch U-200] 60 unit SQ HS 06/17/21 [History] Metoprolol Tartrate [Lopressor] 100 mg PO HS 06/17/21 [History] lisinopriL [Lisinopril] 40 mg PO DAILY 06/17/21 [History] Hx Tetanus, Diphtheria Vaccination/Date Given: No (UNKNOWN) Hx Influenza Vaccination/Date Given: No Hx Pneumococcal Vaccination/Date Given: No Travel Risk - International Travel Have you traveled outside of the country in past 3 weeks: No - Emerging Infectious Disease Are you exhibiting symptoms associated with any current EIDs: No - Review of Systems Constitutional: No Symptoms Eyes: No Symptoms Ears, Nose, & Throat: No Symptoms Respiratory: No Symptoms Cardiac: No Symptoms Abdominal/Gastrointestinal: No Symptoms Genitourinary Symptoms: No Symptoms Musculoskeletal: No Symptoms Skin: Other (Dog bite right forearm) Neurological: Other (Syncopal episode (? Vasovagal)) Psychological: No Symptoms Endocrine: No Symptoms Hematologic/Lymphatic: No Symptoms Immunological/Allergic: No Symptoms All Other Systems: Reviewed and Negative - Past Medical History Pertinent Past Medical History: Yes Neurological History: No Pertinent History ENT History: No Pertinent History Cardiac History: Hypertension Respiratory History: No Pertinent History Endocrine Medical History: Diabetes Type II Musculoskeletal History: No Pertinent History GI Medical History: Colorectal Cancer History: No Pertinent History Psycho-Social History: No Pertinent History Female Reproductive Disorders: No Pertinent History Other Medical History: HODGKINS LYMPHOMA - Past Surgical History Past Surgical History: Yes Neuro Surgical History: No Pertinent History Cardiac: No Pertinent History Respiratory: No Pertinent History Gastrointestinal: Appendectomy, Bowel Surgery, Cholecystectomy Musculoskeletal: No Pertinent History Female Surgical History: Hysterectomy Other Surgical History: RIGHT SHOULDER - Social History Smoking Status: Never smoker Exposure to second hand smoke: No Drug Use: none Patient Lives Alone: No - Nursing Vital Signs Nursing Vital Signs: Initial Vital Signs Temperature 97.6 F 05/11/24 15:55 Pain Scale Pain Intensity 10 - Physical Exam General Appearance: no apparent distress, alert, anxiety, obese Eye Exam: PERRL/EOMI, eyes nml inspection Ears, Nose, Throat Exam: normal ENT inspection, moist mucous membranes Neck Exam: normal inspection, non-tender, supple, full range of motion Respiratory Exam: normal breath sounds, lungs clear, airway intact, No chest tenderness, No respiratory distress Cardiovascular Exam: regular rate/rhythm, normal heart sounds, normal peripheral pulses Gastrointestinal/Abdomen Exam: soft, normal bowel sounds, No tenderness Pelvic Exam: not done Rectal Exam: not done Back Exam: normal inspection, normal range of motion, No CVA tenderness, No vertebral tenderness Extremity Exam: normal range of motion, pelvis stable, lacerations (Approximate ly 4 cm horizontally oriented forearm laceration mid forearm level. Into the subcutaneous tissue. No active bleeding. No foreign body), tenderness (See above), No deformities Neurologic Exam: alert, oriented x 3, cooperative, digital computer systems analyst II-XII nml as tested, nml cerebellar function, nml station & gait, sensation nml Skin Exam: laceration (As described above right forearm) Lymphatic Exam: No adenopathy SpO2 Interpretation: normal O2 Delivery: Room Air - Course Nursing assessment & vital signs reviewed: Yes Ordered Tests: Active Orders 24 hr Category Date Time Status POCT Glucose Check STAT Care 05/11/24 16:30 Active HEAD WITHOUT CONTRAST [CT] Stat Exams 05/11/24 16:31 Ordered BMP Stat Lab 05/11/24 16:30 Received CBC W DIFF Stat Lab 05/11/24 16:30 Completed UA W/RFX UR CULTURE Stat Lab 05/11/24 16:30 Ordered Medication Summary Generic Name Dose Route Start Last Admin Trade Name Ruslan PRN Reason Stop Dose Admin Sodium Chloride 500 mls @ 500 mls/hr 05/11/24 16:39 05/11/24 16:53 Sodium Chloride 0.9% 500 Ml IV 05/11/24 17:38 Not Given .Q1H ONE Discontinued Medications Generic Name Dose Route Start Last Admin Trade Name Ruslan PRN Reason Stop Dose Admin Diphtheria/Tetanus/Acell Pertussis 0.5 ml 05/11/24 16:28 05/11/24 16:50 Tdap --Diph,Pertuss(Acell),Tet Vac/Pf 0.5 Ml Vial IM 05/11/24 16:29 0.5 ml .ONCE ONE Administration Diphtheria/Tetanus/Acell Pertussis Confirm 05/11/24 16:49 Tdap --Diph,Pertuss(Acell),Tet Vac/Pf 0.5 Ml Vial Administered 05/11/24 16:50 Dose 0.5 ml IM .STK-MED ONE Sodium Chloride Confirm 05/11/24 16:49 Sodium Chloride 0.9% 500 Ml Administered 05/11/24 16:50 Dose 500 mls @ ud IV .STK-MED ONE Lidocaine HCl Confirm 05/11/24 16:33 Lidocaine Hcl 1% 20 Ml Mdv 20 Ml Ml Administered 05/11/24 16:34 Dose 10 ml .ROUTE .STK-MED ONE Lidocaine HCl 10 ml 05/11/24 16:36 05/11/24 16:36 Lidocaine Hcl 1% 20 Ml Mdv 20 Ml Ml IJ 05/11/24 16:37 10 ml STAT ONE Administration Lidocaine HCl Confirm 05/11/24 16:41 Lidocaine Hcl 1% 20 Ml Mdv 20 Ml Ml Administered 05/11/24 16:42 Dose 10 ml .ROUTE .STK-MED ONE Morphine Sulfate 2 mg 05/11/24 16:28 05/11/24 16:53 Morphine Sulfate 2 Mg/Ml Inj IV 05/11/24 16:29 Not Given STAT ONE Morphine Sulfate Confirm 05/11/24 16:49 Morphine Sulfate 2 Mg/Ml Inj Administered 05/11/24 16:50 Dose 2 mg .ROUTE .STK-MED ONE Ondansetron HCl 4 mg 05/11/24 16:28 05/11/24 16:53 Ondansetron Hcl 4 Mg/2 Ml Vial IV 05/11/24 16:29 Not Given STAT ONE Ondansetron HCl Confirm 05/11/24 16:49 Ondansetron Hcl 4 Mg/2 Ml Vial Administered 05/11/24 16:50 Dose 4 mg .ROUTE .STK-MED ONE Lab/Rad Data: Laboratory Result Diagrams 05/11/24 16:30 Laboratory Results 05/11/24 Range/Units 16:30 WBC 9.1 (3.98-10.04) x10^3/uL RBC 5.04 (3.93-5.22) x10^6/uL Hgb 14.9 (11.2-15.7) g/dL Hct 42.0 (34.1-44.9) % MCV 83.3 (79.4-94.8) fL MCH 29.6 (25.6-32.2) pg MCHC 35.5 (32.2-35.5) g/dL RDW 13.6 (11.7-14.4) % Plt Count 242 (182-369) x10^3/uL MPV 11.5 (9.4-12.3) fL Gran % 48.8 (34.0-71.1) % Immature Gran % (Auto) 0.3 (0.001-0.429) % Nucleat RBC Rel Count 0.0 (0.00-0.2) % Eos # (Auto) 0.16 (0.04-0.36) x10^3/uL Immature Gran # (Auto) 0.03 (0.001-0.031) x10^3u/L Absolute Lymphs (auto) 3.72 (1.18-3.74) x10^3/uL Absolute Monos (auto) 0.66 (0.24-0.86) x10^3/uL Absolute Nucleated RBC 0.00 (0.00-0.012) x10^3u/L Lymphocytes % 41.1 (19.3-51.7) % Monocytes % 7.3 (4.7-12.5) % Eosinophils % 1.8 (0.7-5.8) % Basophils % 0.7 (0.1-1.2) % Absolute Granulocytes 4.42 (1.56-6.13) x10^3/uL Basophils # 0.06 (0.01-0.08) x10^3/uL - Progress Progress Note: 05/11/24 16:37 My medical decision making and the assignment of moderate complexity to this patient's medical issue today is based on review of the patient's past medical history, review of the patient's medication list, history present illness and physical findings on examination. The workup in this patient includes placement of intravenous line, infusion of 500 mL of normal saline, CBC, BMP, twelve-lead EKG, urinalysis. Will also perform a CT scan of the head and check a p [id number] glucose level. We will provide the patient with Adacel intramuscular injection and provide the patient with outpatient Augmentin antibiotic. We will provide the patient with 2 mg intravenous morphine and 4 mg intravenous Zofran to help control her pain. 05/11/24 16:55 The patient is declining lab testing, urinalysis, EKG and CT scan of her head. Patient states that she did not hit her head. The nursing staff in the emergency department saw that she hit her head. Her verified that she hit her head. The patient states that she does not want to be here any longer than she has to. She is refusing any testing. She is allowing us to approximate her dog bite laceration and to provide her with wound care and provide her with an Adacel injection. Patient is awake alert oriented. She is able to make decisions on her own. I discussed the risks of leaving without a full workup which can include worsening condition and even . I discussed the benefits of staying and the alternatives to the above. Again, she understands and desires to leave AGAINST MEDICAL ADVICE. She will sign the AMA form Counseled pt/family regarding: lab results, diagnosis, need for follow-up, rad results Medical Desision Making - Independent Historian Additional History obtained from: Spouse - Diagnostic Testing Diagnostic test were ordered, analyzed, and reviewed by me: No - Risk of complications The pt has a mod risk of morbidity or mortality based on: Need for prescription drug management - Departure Departure Disposition: AMA Clinical Impression: Dog bite of right forearm, Head injury Condition: Stable Critical Care Time: No Referrals: GARIMA MERCADO MD [Primary Care Provider] - Follow up/PCP as directed Additional Instructions: Keep the current dressing in place until the evening of 05/12/2024. On the evening of 05/12/2024, may remove the bandage and rinse the area off daily thereafter with soapy water. Blot dry use a department chair. May apply thin layer of antibiotic ointment to the abrasion sites but not on the laceration repair site. After each washing and each drying of the site, may cover the wound with a nonstick gauze. Staple removal in 10 days. Take your antibiotics and other medication as prescribed. Prescriptions: Amoxicillin/Potassium Clav [Augmentin 500-125 Tablet] 1 each PO TID 5 Days #15 tablet
[2024-05-11 16:01] VITALS: TEMP 97.6
[2024-05-11] MEDS ORDERED: XYLOCAINE 1% HCL 20 ML MDV ONE ×2 (16:33→16:41)
[2024-05-11] MEDS: XYLOCAINE 1% HCL 20 ML MDV IJ ONE (16:36)
[2024-05-11 16:44] LABS: Absolute Neutrophil Ct (ANC) 4.42 x10^3/uL (1.56-6.13); BASOPHIL % 0.7 % (0.1-1.2); Basophil (Absolute #) 0.06 x10^3/uL (0.01-0.08); Eosinophil % 1.8 % (0.7-5.8); Eosinophil (Absolute #) 0.16 x10^3/uL (0.04-0.36); Hemoglobin 14.9 g/dL (11.2-15.7); IMMATURE GRAN # 0.03 x10^3u/L (0.001-0.031); IMMATURE GRAN % 0.3 % (0.001-0.429); Lymphocyte (Absolute #) 3.72 x10^3/uL (1.18-3.74); Lymphocytes % 41.1 % (19.3-51.7); Mean Cell Volume 83.3 fL (79.4-94.8); Mean Corpuscular Hemoglobin 29.6 pg (25.6-32.2); Mean Corpuscular Hgb Concent. 35.5 g/dL (32.2-35.5); Mean Platelet Volume 11.5 fL (9.4-12.3); Monocyte (Absolute #) 0.66 x10^3/uL (0.24-0.86); Monocytes % 7.3 % (4.7-12.5); Neutrophil % 48.8 % (34.0-71.1); Platelet Count 242 x10^3/uL (182-369); Red Blood Count 5.04 x10^6/uL (3.93-5.22); Red Cell Distribution Width 13.6 % (11.7-14.4); White Blood Count 9.1 x10^3/uL (3.98-10.04)
[2024-05-11] MEDS ORDERED: Zofran 4 MG/2 ML VIAL ONE (16:49)
[2024-05-11] MEDS ORDERED: MORPHINE SULFATE 2 MG INJ ONE (16:49)
[2024-05-11] MEDS ORDERED: Sodium Chloride 0.9% 500 ML 0 ML IV ONE (16:49)
[2024-05-11] MEDS ORDERED: Adacel Vial IM ONE (16:49)
[2024-05-11] MEDS: Adacel Vial IM ONE (16:50)
[2024-05-11] MEDS: MORPHINE SULFATE 2 MG INJ IV ONE (16:51)
[2024-05-11] MEDS: Sodium Chloride 0.9% 500 ML 500 ML IV ONE (16:51)
[2024-05-11] MEDS: Zofran 4 MG/2 ML VIAL IV ONE (16:51)
[2024-05-11 17:05] VITALS: BP 144/93; PULSE 65; RESP 17; O2SAT 97
[2024-05-11 17:09] LABS: ANION GAP 16.9 MEQ/L (5-15); Calcium 9.8 mg/dL (8.4-10.2); Creatinine 1 1.01 mg/dL (0.52-1.04); EST GLOMERULAR FILTRATION RATE 59.2 ML/MIN; Potassium 4.2 mmol/L (3.5-5.1)
== END 2024-05-11 17:12 | disposition home or self-care (01) ==
LOC: ED 15:50
DX: S51.851A Open bite of right forearm, initial encounter (principal); W54.0XXA Bitten by dog, initial encounter; S09.90XA Unspecified injury of head, initial encounter; W18.30XA Fall on same level, unspecified, initial encounter; Y92.238 Other place in hospital as the place of occurrence of the external cause; I10 Essential (primary) hypertension; E11.9 Type 2 diabetes mellitus without complications; Z79.4 Long term (current) use of insulin; Z79.899 Other long term (current) drug therapy; Z23 Encounter for immunization
CPT/HCPCS: 36000; 36415; 80048; 85025; 90471; 90715; 96372; 99284; J2270; J2405

== ENCOUNTER 2024-05-13 16:49 | Emergency (ER) | payer MEDICARE ==
[2024-05-13 17:12] VITALS: BP 161/104; PULSE 71; TEMP 97.2; O2SAT 98
--- NOTE | 2024-05-13 17:23 | ERPHSYRPT ---
- History of Present Illness Time Seen by Provider: 05/13/24 17:22 Source: patient, family Exam Limitations: no limitations Patient Subjective Stated Complaint: pt was bit by a dog 2 days ago and had orlin placed and came in today to have them removed and get some pain m edicine, explained to pt that they are to stay in for 10 days and she was supposed to take the bandage off yesterday and wash with soap and water and she hadn't and she also has not picked up her antibiotics from the pharmacy and has not taken any tylenol or ibuprofen Triage Nursing Assessment: Pt brought to the ER by her , hypertensive, rates pain as 10/10, pulses normal, skin n/w/d, right forearm has orlin and appears to be healing properly, however her hand is red and swollen, pt is afebrile Allergies/Adverse Reactions: codeine [Codeine] Allergy (Mild, Verified 05/13/24 17:12) Home Medications: Gabapentin 600 mg PO HS 06/17/21 [History] Insulin Degludec [Tresiba Flextouch U-200] 60 unit SQ HS 06/17/21 [History] Metoprolol Tartrate [Lopressor] 100 mg PO HS 06/17/21 [History] lisinopriL [Lisinopril] 40 mg PO DAILY 06/17/21 [History] Hx Tetanus, Diphtheria Vaccination/Date Given: No (UNKNOWN) Hx Influenza Vaccination/Date Given: No Hx Pneumococcal Vaccination/Date Given: No Travel Risk - International Travel Have you traveled outside of the country in past 3 weeks: No - Emerging Infectious Disease Are you exhibiting symptoms associated with any current EIDs: No - Past Medical History Pertinent Past Medical History: Yes Neurological History: No Pertinent History ENT History: No Pertinent History Cardiac History: Hypertension Respiratory History: No Pertinent History Endocrine Medical History: Diabetes Type II Musculoskeletal History: No Pertinent History GI Medical History: Colorectal Cancer History: No Pertinent History Psycho-Social History: No Pertinent History Female Reproductive Disorders: No Pertinent History Other Medical History: HODGKINS LYMPHOMA - Past Surgical History Past Surgical History: Yes Neuro Surgical History: No Pertinent History Cardiac: No Pertinent History Respiratory: No Pertinent History Gastrointestinal: Appendectomy, Bowel Surgery, Cholecystectomy Musculoskeletal: No Pertinent History Female Surgical History: Hysterectomy Other Surgical History: RIGHT SHOULDER - Social History Smoking Status: Never smoker Exposure to second hand smoke: No Drug Use: none Patient Lives Alone: No - Social Determinants of Health Will the patient participate in the screening: Yes Do you worry about a steady place to live?: No Do you have any problems with any of the following?: No known problems In the past 12 months,have you had to go without utilities?: No Transportation Issues: No Has anyone in your support network made you feel unsafe?: No Have you or anyone in your house had to go without enough: No - Nursing Vital Signs Nursing Vital Signs: Initial Vital Signs Temperature 97.2 F 05/13/24 17:00 Pulse Rate 71 05/13/24 17:00 Blood Pressure 161/104 05/13/24 17:00 O2 Sat by Pulse Oximetry 98 05/13/24 17:00 Pain Scale Pain Intensity 10 - Physical Exam SpO2: 98 - Departure Referrals: GARIMA MERCADO MD [Primary Care Provider] - Follow up/PCP as directed
== END 2024-05-13 18:20 | disposition left against medical advice (07) ==
LOC: ED 16:49
DX: Z48.00 Encounter for change or removal of nonsurgical wound dressing (principal)
CPT/HCPCS: 99281; G0463